=== PATIENT | female | born 1985 | race African-American/Black ===

== ENCOUNTER 2016-12-16 22:54 | Inpatient (IN) | payer MEDICARE, OTHER ==
--- NOTE | ~2016-12-16 | DS ---
Discharge Summary [address] [place]. [address] NAME: HANNY PERERA : 85 STATUS : DIS IN PAT#: [id number] AGE: 31 ADM/REG DATE : 12/17/16 MR#: [id number] REPORT SERV DATE: 01/15/17 DICTATED BY: TRISTEN FITZPATRICK DATE: 01/11/17 REPORT STATUS : Draft TRANSCRIBED BY: MODAby DATE: 01/11/17 Data Collection from hospitalization DISCHARGE DIAGNOSES: 1. Acute/chronic respiratory failure secondary to hypercapnia and hypoxemia. 2. Left lung opacification secondary to mucus plugging. 3. Quadriplegia neurofibromatosis. 4. Anemia secondary to chronic disease. 5. Electrolyte imbalance. 6. Muscle spasticity. 7. Bilateral upper extremity and bilateral feet edema. 8. Bilateral pneumonia, likely healthcare-associated pneumonia. CONSULTATIONS: 1. Anshul Palomino M.D. 2. Jeffrey Miguel PA-C. 3. Maria Guadalupe Graves MD. PROCEDURES PERFORMED: 1. Venous Doppler ultrasound of the right lower extremity on 01/03/2017. 2. Venous Doppler ultrasound of the right upper extremity on 01/03/2017. MEDICATIONS: Artificial Tears one drop in both eyes every six hours as needed, Lioresal 20 mg at bedtime, Valium 7.5 mg twice a day, Lovenox 40 mg subcutaneously every 24 hours, Neurontin 400 mg every six hours, Guaifenesin LA 600 mg three times a day, Zaditor one drop in both eyes daily, Claritin 10 mg daily, Mag-Ox 400 mg daily, Ritalin 5 mg at 8 :00 a.m. and 2:00 p.m., Provigil 200 mg daily, Singulair 10 mg at bedtime, Theragran one tablet daily, Senokot one tablet daily, Proventil 3 mL via inhaler every four hours, Tylenol 650 mg every four hours as needed, Lioresal 10 mg at 8:00 a.m. and 3:00 p.m. as needed, Ativan 1-4 mg IV every two hours as needed, Bengay one application topically as needed, morphine 1-4 mg IV every two hours as needed, Zofran 4 mg IV every six hours as needed, and Proventil 3 mL via inhaler every two hours as needed. CONDITION AT DISCHARGE: Stable. DISPOSITION: The patient was discharged to [facility] on a regular diet with activities as instructed. HOSPITAL COURSE: This is a 31-year-old man who has a history of chronic respiratory failure, quadriplegia secondary to a history of neurofibromatosis. The patient was found to be more lethargic with low O2 saturation and was sent to the [facility] Emergency Room for evaluation. On BiPAP, the patient was alert and would attempt to converse. However, the patient's mother was at the bedside and was able to give the patient history and clarified some recent change of medical condition. He was admitted to the hospital at this time for further evaluation and treatment. Upon admission, white blood cell count was 2.8. He was felt to have acute on chronic respiratory failure secondary to hypercapnia and hypoxemia. He has bilateral pneumonia, Discharge Summary [address] [place]. [address] NAME: HANNY PERERA : 85 STATUS : DIS IN PAT#: [id number] AGE: 31 ADM/REG DATE : 12/17/16 MR#: [id number] REPORT SERV DATE: 01/15/17 DICTATED BY: TRISTEN FITZPATRICK DATE: 01/11/17 REPORT STATUS : Draft TRANSCRIBED BY: HAFSA DATE: 01/11/17 which was likely healthcare-associated pneumonia. The patient was going to remain on BiPAP, which he does tolerate. Bronchodilator protocol was continued. We encouraged him to use incentive spirometry when off BiPAP. He was currently on a pneumonia regimen with vancomycin and cefepime. He did receive a dose of Zosyn in the emergency room. His admission platelet count was 99. We would hold off on any chemotherapeutic DVT prophylaxis. LEONOR hose were placed. His home regimen of Valium and baclofen were continued as well as hydrocodone for pain management. The patient was seen by Jeffrey Miguel. The patient is not currently established in an outpatient pulmonary clinic. He does not usually require supplemental oxygen. He is on no nebulized medications. He did smoke in the remote past, however, only about a half pack a day for a few years. He denies any symptomatology related to obstructive sleep apnea. He is a functional quadriplegic. Arterial blood gas had revealed PaCO2 of 79 and pH of 7.31. He had a good oxygenation status at this time wearing BiPAP with FiO2 of 21%. Chest x-ray revealed bibasilar infiltrates. It was felt that the acute on chronic hypercapnic respiratory failure was likely secondary to both his neuromuscular disease as well as some of his medications. He would be continued on BiPAP with breaks. We would check arterial blood gas the following morning. The patient was going to have his home trilogy unit brought in, this may be adjusted moving forward. Procalcitonin would be rechecked as well as a chest x-ray. The following day, he was more dyspneic and congested during the night. He did wear BiPAP without issues. ABG that morning showed correction of hypercapnia. He was going to continue on BiPAP. He has had a fever during the night. The patient did have increased O2 demand. A PICC line was inserted. On 12/19/2016, he was resting on BiPAP. Chest x-ray showed increased bibasilar infiltrates. His respiratory status was fragile secondary to neuromuscular weakness. He did pass ST evaluation. We wanted to advance his diet and stop the IV fluids, and it was felt that he would benefit from the trach. Speech/Language Pathology performed a bedside swallow study. There were no overt signs or symptoms of aspiration, but the patient was unable to cough. The next day, he was more alert and interactive. He was tolerating BiPAP and cough assist. It was felt that he would ultimately benefit from a trach. The patient wanted more time to think this over. On 12/21/2016, the patient developed worsening hypoxemia and hypercapnia. The patient was adamant regarding no trach. His mother was in agreement and would like to proceed with hospice. He was seen by Dr. Maria Guadalupe Graves regarding the worsening acute hypoxemic and hypercapnic respiratory failure superimposed on chronic hypoxemic and hypercapnic respiratory failure. Since the patient had been incapacitated, she reports that he had been quite adamant about not undergoing placement of a tracheostomy for several years and was fully aware of the risk of and poor quality of life associated with not proceeding with trach. The patient's mother verbalized that she understood that he was approaching the end of his life. The concept of hospice care and adjustments were discussed. The patient's mother was amenable to having hospice visit with the patient later in the day to discuss various levels of care as well as weighs that hospice may be helpful to his family during this difficult time. A DNR form was completed. A referral was made to [facility]. A hospice rn met with the patient's mother at her request. Hospice services and philosophies were discussed. The following day, the patient's mother said the patient did not want hospice care at this time. Education was provided regarding their services. His level of consciousness had increased. He had a mild headache, but no nausea, vomiting, or diarrhea. His shortness of breath had decreased. He continued to intermittently refuse BiPAP, particularly at night. We recommended that he use BiPAP at night. We would titrate O2 as needed. Discharge Summary [address] [place]. [address] NAME: HANNY PERERA : 85 STATUS : DIS IN [facility]#: [id number] AGE: 31 ADM/REG DATE : 12/17/16 MR#: [id number] REPORT SERV DATE: 01/15/17 DICTATED BY: TRISTEN FITZPATRICK DATE: 01/11/17 REPORT STATUS : Draft TRANSCRIBED BY: HAFSA DATE: 01/11/17 On 12/23/2016, the patient mainly complained of right eye tearing, probably secondary to the mass putting pressure on the tear duct. He had minimal pain at this time. Antibiotics were continued. Chest x-ray revealed a new left lung nodule. Tylenol was being given for his headache. His respiratory status continued to decline. He began to require continuous BiPAP with FiO2 100%. On 12/25/2016, his chest x-ray revealed consolidation of the left lung. The patient was felt to have a mucus plug in the left lung. The patient was seen by Dr. Anshul Palomino. His shortness of breath had worsened and he was unable to tolerate being off the bypass. The patient was sitting up in bed, visibly gasping for air. Emotional support was provided. We would continue to provide supportive care. Morphine was being given. He was unable to tolerate any period off BiPAP. Chest x-ray on 12/28/2016 showed improved aeration in the left upper lobe. There was residual opacity in the left lung. He was afebrile, off antibiotics at this time. His prognosis remained poor. On 12/31/2016, the patient was anxious. He had increased work of breathing. His work of breathing improved with morphine. He has an opacified left hemithorax, which was too tenuous for bronchoscopy. We continued to have end of life discussions with the mother and the patient. Morphine and anxiolytics were continued. It was felt that mucus plug would continue to be biggest bairon. His medications had been maximally managed and there was not much more which could be added. The patient was only able to tolerate being off BiPAP about one hour. On 01/02/2017, he had less congestion. He did wear the BiPAP during the night. Oxygen requirements had slightly improved. He did tolerate being on Vapotherm for about three hours on 01/02/2017. He was placed back on BiPAP and was comfortable. On 01/03/2017, discharge plans were being discussed. Later in the day, he had worsening hypoxemia and rhonchi. He was on continuous BiPAP. Venous Doppler ultrasound of the right lower extremity and right upper extremity were performed. There was no DVT in the right lower extremity. There were multiple lymph nodes identified in the groin on the right side. There was no evidence of DVT in the right upper extremity. On 01/04/2017, he was on maximal BiPAP settings. He continued to refuse the trach. He continued to have mucus plugging. Discharge instructions were given. Due to his stable condition, he was discharged to [facility] with the above-stated instructions. Information collected by: Ignacia Ambriz I submit the above information as my discharge summary. TG/MODL Tristen Fitzpatrick M.D. / [id number] CC: Jessica Carrillo M.D. [facility]
--- NOTE | ~2016-12-16 | HP ---
History And Physical [address] [place]. [address] NAME: HANNY PERERA : 85 STATUS : ADM IN [facility]#: [id number] AGE: 31 ADM/REG DATE : 12/17/16 MR#: [id number] REPORT SERV DATE: 12/17/16 DICTATED BY: TRISTEN FITZPATRICK DATE: 12/17/16 REPORT STATUS : Draft TRANSCRIBED BY: MODL DATE: 12/17/16 DATE OF ADMISSION: 12/17/2016 CHIEF COMPLAINT: Low oxygen and drowsy. HISTORY OF PRESENT ILLNESS: The patient is a 31-year-old male with known history of chronic respiratory failure, quadriplegia secondary to history of neurofibromatosis. The patient was found to be more lethargic and with low O2 saturation; therefore, was sent to [facility] Emergency Room for further evaluation. The patient on BiPAP is alert and attempts to converse; however, the patient's mother at bedside able to give the patient's history and clarified some recent change of medical condition. ALLERGIES: ALLERGIC TO IVP DYE. CODE STATUS: Full code. HOME MEDICATIONS: Albuterol inhalation every 6 hours, Bion Tears 1 drop every 6 hours, baclofen 20 mg p.o. at bedtime, Valium 7.5 mg p.o. twice a day, Mildred 180 mg p.o. daily, Neurontin 400 mg p.o. every 6 hours, hydrocodone 7.5/325 mg p.o. every 12 hours p.r.n., magnesium oxide 250 mg q.48 h., Provigil 200 mg p.o. daily, Ritalin 5 mg p.o. twice a day, Singulair 10 mg p.o. at bedtime, multivitamin without minerals 1 p.o. daily, olopatadine hydrochloride solution 1 drop in each eye every morning, and Senokot 1 tablet every morning. PAST MEDICAL HISTORY: 1. Chronic respiratory failure, had used Trilogy in the past 3 years with recent change to regular BiPAP per the patient's mother, but unsure why. 2. Asthmatic bronchitis. 3. Quadriplegia. 4. Gastroesophageal reflux disease. 5. Muscle spasticity. 6. Asthma. 7. History of neurofibromatosis. 8. History of pneumonia. 9. History of daytime drowsiness likely secondary to medication side effects. 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 SOCIAL HISTORY: The patient is a resident of [facility] for approximately 1 year and 6 months. He is single and he denies any history of alcohol, tobacco or any illicit drug use. REVIEW OF SYSTEMS: The patient denies any problem with his eyesight. He denies any history of swallowing issue. The patient has had some issue with wax buildup in his left ear. The patient had History And Physical [address] [place]. [address] NAME: HANNY PERERA : 85 STATUS : ADM IN [facility]#: [id number] AGE: 31 ADM/REG DATE : 12/17/16 MR#: [id number] REPORT SERV DATE: 12/17/16 DICTATED BY: TRISTEN FITZPATRICK DATE: 12/17/16 REPORT STATUS : Draft TRANSCRIBED BY: HAFSA DATE: 12/17/16 reported some runny nose, sneezing and watery eyes in the past secondary to allergy. The patient denies any shortness of breath. Denies any chest pain. The patient's mother reports the patient has been on Trilogy BiPAP for approximately 3 years and had been changed recently to regular BiPAP, but unsure why and how long ago while at [facility]. The patient's mother feels that since he has been changed to regular BiPAP, he has had some issue with staying awake, and therefore, he was just recently started on Provigil, which did not help. The patient denies complaint of any chest pain. Denies any complaint of abdominal pain. The patient's mother reports, the patient has had a bowel movement last on Saturday. The patient with history of quadriplegia and contractures of his extremities. The patient uses a brace for his bilateral hands and bilateral lower extremity, but was not brought in from [facility]. The patient's mother also reports the patient with dry skin and wants him to have daily moisturizer and has had some pressure ulcer that has healed on his right foot. While at [facility], the patient uses his motorized wheelchair to get around. PHYSICAL EXAMINATION: VITAL SIGNS: The patient's pulse is 66, respiratory rate 12, BP of 117/58, sat O2 of 97% currently on BiPAP with FiO2 of 21%, weight of 66.73 kg, BMI of 17.9. GENERAL: The patient is an male, currently on continuous BiPAP, but awake and in no acute distress noted. The patient is conversant. EYES: PERRL. NECK: No pain on palpation. Moves neck without pain. CHEST: No deformity noted. LUNGS: Clear to auscultation bilaterally, symmetrical expansion. CV: Regular rate and rhythm. Normal S1, S2. No murmurs noted. ABDOMEN: Soft, nontender. Positive bowel sounds x4 quadrants. EXTREMITIES: Noted slight edema on the left ankle, positive contracture of bilateral lower ankles with bilateral footdrop, and noted old healed scar on the right plantar area with hyperpigmentation along the scarred area. SKIN: Generalized dry skin worsened lower extremity and noted left antecubital peripheral IV without redness or edema. Chest x-ray on 12/17/2016, revealed perihilar and bibasilar infiltrates, blurred thickening in the apices. LABORATORY STUDY: On 12/17, revealed a sodium of 142, potassium 4.0, chloride of 103, CO2 of 37, BUN 14, creatinine of 0.25, glucose of 60, GFR of 223. WBC of 2.8, hemoglobin 12.8, hematocrit 42.0, platelet of 99. AST 34, bilirubin of 0.4, total protein of 6.6, ALT of 54, albumin 3.1, ALP of 93, lactate of 0.4, procalcitonin of less than 0.05. ABG revealed 7.31 pH, pCO2 of 79, pO2 of 141, HCO2 of 39.0 and iO2 of 21.0. ASSESSMENT: 1. Gdvgg-uv-hddnwsm respiratory failure secondary to hypercapnia and hypoxemia. 2. Bilateral pneumonia, likely healthcare associated pneumonia. 3. Neutropenia. History And Physical [address] [address] NAME: HANNY PERERA : 85 STATUS : ADM IN [facility]#: [id number] AGE: 31 ADM/REG DATE : 12/17/16 MR#: [id number] REPORT SERV DATE: 12/17/16 DICTATED BY: TRISTEN FITZPATRICK DATE: 12/17/16 REPORT STATUS : Draft TRANSCRIBED BY: MODL DATE: 12/17/16 4. Thrombocytopenia. 5. Quadriplegia secondary to history of neurofibromatosis. 6. History of muscle spasticity, secondary to neurofibromatosis. 7. History of asthma. 8. History of gastroesophageal reflux disease. PLAN: Appreciate consult with equip tech. The patient was seen today by equip tech, reviewed ABG result this morning. The patient currently remains on BiPAP, which the patient tolerates. The patient appears to have been on Trilogy. We will need further evaluation on whether this patient continues to use the Trilogy at [facility] as it was recently changed to regular BiPAP. We will need to know rationale for the change. Follow up chest x-ray in a.m. as well as ABG. Continue bronchodilator protocol q.4 h. and encourage use of bedside incentive spirometry when off BiPAP. Continue to monitor sat O2 and respiratory rate. The patient is at risk for further hypoxia. The patient currently on pneumonia regimen with vancomycin and cefepime. The patient did receive a dose of Zosyn while at the ER. We will have Pharmacy monitor vancomycin level and ensure the patient's vancomycin level is therapeutic. The patient is at risk for sepsis, also at risk for acute kidney injury with vancomycin therapy. The patient's admission WBC is 2.8. We will ensure standard precaution. Repeat labs in a.m. The patient is at risk for sepsis. The patient's admission platelet is 99, so we will hold off on any chemotherapeutic DVT prophylaxis. We will place the patient on LEONOR hose, for now followup labs. The patient is at risk for bleeding. The patient with history of muscle spasticity secondary to his history of neurofibromatosis and quadriplegia. We will continue current home regimen of Valium and baclofen as well as p.r.n. hydrocodone for pain management. We will continue frequent positional changes. The patient is at risk for skin breakdown. We will review the patient's home medications. We will continue home regimen except for albuterol since the patient is now on bronchodilator protocol. Monitor bowel movement, continue Senokot. The patient is at risk for bowel obstruction. Address the patient's code status with mother and continued to desire full code. POLST form from [facility] is in chart. DICTATED BY: Kassie Spaulding NP CLP/HAFSA Tristen History And Physical [address] [place] [address] NAME: HANNY PERERA : 85 STATUS : ADM IN PAT#: [id number] AGE: 31 ADM/REG DATE : 12/17/16 MR#: [id number] REPORT SERV DATE: 12/17/16 DICTATED BY: TRISTEN FITZPATRICK DATE: 12/17/16 REPORT STATUS : Draft TRANSCRIBED BY: MODL DATE: 12/17/16 Jessica Fitzpatrick / [id number] CC: Lino Naik M.D.
--- NOTE | ~2016-12-16 | CN ---
Consultation Report [facility] [address] [place]. [address] NAME: HANNY ROWE : 85 STATUS : ADM IN PAT#: [id number] AGE: 31 ADM/REG DATE : 12/17/16 MR#: [id number] REPORT SERV DATE: 12/17/16 DICTATED BY: JEFFREY WATKINS DATE: 12/17/16 REPORT STATUS : Draft TRANSCRIBED BY: MODL DATE: 12/17/16 CONSULT NOTE DATE OF CONSULTATION: 12/17/2016 CHIEF COMPLAINT: Somnolence in a patient with hypercapnia. HISTORY OF PRESENT ILLNESS: Mr. Hanny Rowe is a very pleasant 31-year-old male with a past medical history significant for neurofibromatosis, who presents to [facility] from a long-term care facility for issues related to hypersomnolence. It should be noted that Mr. Rowe has not been hospitalized recently. Mr. Rowe is not currently established in an outpatient Pulmonary Clinic. He is not usually require supplemental oxygen. He is on no nebulized medications. He did smoke in the remote past, however, only about half a pack a day for a few years. He largely denies symptomatology related to obstructive sleep apnea. He is unable to quantify his exercise tolerance as he is a functional quadriplegic. Mr. Rowe underwent a resection of a neck tumor in 2005. By report, it was diagnostic for neurofibromatosis. He began to experience worsening lower extremity weakness, which has become progressively worse, it is now effecting his upper extremities. Approximately a year ago, he began seeing at [facility]. While there, he has maintained on Trilogy system with a rate of 16 and an approximated tidal volume of 600. More recently, he has had episodes where he has become somnolent and even difficult to arouse at times. As there was some concern about his overall pulmonary status he was transferred to [facility] Emergency Room for further assessment. Upon arrival, the patient had a systolic blood pressure of 102. He was afebrile with good oxygen saturations. Initial blood work revealed white blood cell count of 2800. Lactate was 0.4. Chest x-ray was obtained, which revealed patchy infiltrates in the bilateral bases. The patient was started on Zosyn and vancomycin. An arterial blood gas was obtained, which revealed a PaCO2 of 79 and a pH of 7.31. The patient was started on BiPAP therapy. For the aforementioned reasons, the patient has been referred to the Pulmonary Service for further assessment. Currently, Mr. Roew is wearing a BiPAP. He is alert and awake. He is answering questions appropriately. He has good oxygenation status on an FiO2 of 21%. He denies any aspiration events. He denies any productive cough or any wheezing. He has no shortness of breath. He denies recurrent upper respiratory infections, asthma, or previous diagnosis of COPD. The patient currently denies any murmurs, angina, or palpitations. He denies any orthopnea or dependent edema. Consultation Report [address] [place]. [address] NAME: HANNY ROWE : 85 STATUS : ADM IN [facility]#: [id number] AGE: 31 ADM/REG DATE : 12/17/16 MR#: [id number] REPORT SERV DATE: 12/17/16 DICTATED BY: JEFFREY WATKINS DATE: 12/17/16 REPORT STATUS : Draft TRANSCRIBED BY: HAFSA DATE: 12/17/16 In regard to constitutional symptoms, currently denies fever, chills, nausea, vomiting, chest pain, abdominal pain, or edema. PAST MEDICAL HISTORY: 1. Neurofibromatosis. 2. Chronic respiratory failure. PAST SURGICAL HISTORY: Excision of a neck tumor in 2005. FAMILY HISTORY: There is a strong family history of neurofibromatosis. SOCIAL HISTORY: The patient is not . He has no biologic children. He denies any past exposures to dust, silica, or asbestos. TOBACCO/ALCOHOL: As previously mentioned, the patient is a remote smoker. MEDICATIONS: Baclofen 20 mg, diazepam 5 mg, Mildred 180 mg, gabapentin 400 mg, hydrocodone 7.5/325, methylphenidate 5 mg, modafinil mg, montelukast 10 mg, . ALLERGIES: THE PATIENT HAS ALLERGY TO HYDROCODONE. REVIEW OF SYSTEMS: Complete review of systems was performed with pertinent positives and negatives contained within the body of the HPI. PHYSICAL EXAMINATION: VITAL SIGNS: Blood pressure is 117/58, heart rate 74, T-max 98.6, respiratory rate is 12, SpO2 is 97% on BiPAP settings 18/5 with an FiO2 of 21%. GENERAL: Mr. Hanny Rowe is a very pleasant 31-year-old male, who is not currently exhibiting any signs of acute distress. SKIN: Diffuse macule and papules on the anterior chest. HEENT: Head: Skull is normocephalic, atraumatic. Facies are symmetric. Eyes: Sclerae anicteric. Conjunctivae pink without exudates. Ears: Auricles and tragus without pain to palpation. Nose: Bilateral nasal patency. Throat: Dentition noted. Lips, oral mucosa, tongue, palate, and pharynx pink and moist without lesions. NECK: Neck is supple. Trachea midline. THORAX/LUNGS: Thorax is symmetric with equal chest rise. Breath sounds are audible through entire field. No rales, wheezes, or rhonchi. CARDIOVASCULAR: Regular rate and rhythm. No murmurs, rubs, or gallops. ABDOMEN: Soft. Nondistended, nontender. PERIPHERAL VASCULAR: No edema. No varicosities or stasis changes. MUSCULOSKELETAL: No evidence of erythema, deformity, or crepitus. NEUROLOGIC: Strength is 0/5 throughout. PSYCHIATRIC: The patient demonstrates good judgment and insight. Consultation Report [address] [address] NAME: HANNY ROWE : 85 STATUS : ADM IN [facility]#: [id number] AGE: 31 ADM/REG DATE : 12/17/16 MR#: [id number] REPORT SERV DATE: 12/17/16 DICTATED BY: JEFFREY WATKINS DATE: 12/17/16 REPORT STATUS : Draft TRANSCRIBED BY: MODL DATE: 12/17/16 ACCESSORY DATA: Reveals a procalcitonin 0.05. White blood cell count is 2800. Arterial blood gas reveals pH 7.31, PaCO2 of 79, PaO2 of 141, and a bicarb of 39.0. Chest x-ray reveals bibasilar infiltrates. IMPRESSION: 1. Acute on chronic hypercapnic respiratory failure. 2. Neurofibromatosis. 3. Functional quadriplegia. 4. Possible pneumonia. 5. Neutropenia. PLAN: 1. At this time, his acute on chronic hypercapnic respiratory failure is likely secondary to both his neuromuscular disease as well as some of his medications. We will continue him on BiPAP with breaks today. We will check an arterial blood gas in the morning. We will encourage the patient to bring in his home Trilogy unit. We may need to adjust this moving forward. 2. In regard to the patient's possible pneumonia, we will recheck a procalcitonin as well as a chest x-ray. Hopefully, we can deescalate antibiotics soon. The aforementioned impression and plan has been discussed with Dr. Stoner, who will follow further recommendations. We thank you for this consult and look forward to participating in the care of Hanny Rowe. GBS/MODL Jeffrey Watkins PA-C / [id number] CC: Lino Naik M.D.
--- NOTE | ~2016-12-16 | CN ---
Consultation Report [facility] [address] [place]. [address] NAME: HANNY ROWE : 85 STATUS : ADM IN PAT#: [id number] AGE: 31 ADM/REG DATE : 12/17/16 MR#: [id number] REPORT SERV DATE: 12/21/16 DICTATED BY: NAVNEET WEBB DATE: 12/21/16 REPORT STATUS : Draft TRANSCRIBED BY: MODL DATE: 12/21/16 PULMONARY CRITICAL CARE DOCUMENTATION DATE OF CONSULTATION: 12/21/2016 REASON FOR CONSULTATION: Worsening acute hypoxemic and hypercapnic respiratory failure, superimposed onto chronic hypoxemic and hypercapnic respiratory failure. HISTORY OF PRESENT ILLNESS: I was asked to evaluate Mr. Rowe in the IMCU by Dr. Angelica Stoner, who is seeing him for the Pulmonology Consult Service after his transfer from the unit yesterday, he is well known to me from his recent CCU stay. His mother was at the bedside, who functions as his medical decision maker. Over the course of the last 12 hours, Hanny has been developing worsening hypoxemia with a sat that has been consistently in the mid 80s despite aggressive BiPAP settings and frequent cough assist device was used. After examining at the bedside, he was found to have bilateral coarse breath sounds with diminished breath sounds at the bases and accessary muscle use (sternocleidomastoid) as he was attempting to ventilate himself. We were able to remove adjustments BiPAP mask to discuss his goals for future care. He reported that he wanted to go home. Long discussion was conducted with Dr. Stoner and myself, and Hanny's mother, who makes his medical decisions. When he is incapacitated, she reports that he has been quite adamant about not undergoing placement of tracheostomy for several years and is fully aware of the risk of associated with not proceeding with trach. We discussed the concept of mechanical ventilation/intubation as a bridge to destination therapy and as he has a permanent neuromuscular respiratory weakness, unfortunately placing him on mechanical ventilation without plan for tracheostomy insertion would be a bridge to nowhere. His mother was in agreement and verbalized that she understands that he is approaching the end of his life. She verbalized that she felt that he has been giving up over the past couple of weeks, and is very clear with regard to his wishes as he watched his father from complications of neuromuscular respiratory weakness, and pneumonia as well, and is at peace with the fact that he will likely from the same condition. We introduced a concept of hospice care and adjustments. The mother was amenable to having hospice visit with him later today to discuss the various levels of care available to him as well as weighs that hospice may be helpful to his family during this difficult time. We did complete a DNR form with the understanding that he will not be intubated and will certainly not benefit from ACLS. We will notify the primary team and proceed with transition toward hospice care. Please re-consult if we may be of additional assistance, Critical Care Medicine will be signing off. TANNER/HAFSA Navneet Consultation Report [address] [place]. [address] NAME: TREVERHANNY : 85 STATUS : ADM IN PAT#: [id number] AGE: 31 ADM/REG DATE : 12/17/16 MR#: [id number] REPORT SERV DATE: 12/21/16 DICTATED BY: NAVNEET WEBB DATE: 12/21/16 REPORT STATUS : Draft TRANSCRIBED BY: HAFSA DATE: 12/21/16 MD Star / [id number] CC: Lino Naik M.D.
[2016-12-16 23:10] LABS: BE (BASE EXCESS) 9.3 MEQ/L (0 +/- 2.5); CARBOXYHEMOGLOBIN 1.4 % (0-3); HEMOBLOGIN CONTENT 14.3 G/DL (14-18); INSTRUMENT SERIAL # 8087; METHEMOGLOBIN 0.5 % (0-3); O2 CONTENT 19.7 VOL% (18-24); PCO2 (CO2 TENSION) 79 MMHG (35-45); PO2 (O2 TENSION) 141 MMHG (79-93); SAMPLE Arterial; pH 7.31 (7.37-7.43)
[2016-12-16 23:30] LABS: BASOPHILS 0.4 %; BASOPHILS ABSOLUTE 0.01 10/3/uL (0.0-0.16); EOSINOPHILS 1.4 %; EOSINOPHILS ABSOLUTE 0.04 10/3/uL (0.0-0.53); ER CBC TAT 0 Hrs 03 Mins; HEMOGLOBIN 13.8 g/dL (13.6-17.8); IMMATURE GRANULOCYTES 0.4 %; IMMATURE GRANULOCYTES ABSOLUTE 0.01 10/3/uL (0.0-0.11); LYMPHOCYTES 44.7 %; LYMPHOCYTES ABSOLUTE 1.27 10/3/uL (0.67-4.30); MEAN CORPUS HGB CONC 32.9 g/dL (32.0-36.0); MEAN CORPUSCULAR HEMOGLOB 30.2 pg (26.0-34.0); MEAN CORPUSCULAR VOLUME 91.9 fL (80-100); MEAN PLATELET VOLUME 12.4 fL (9.2-13.0); MONOCYTES 6.7 %; MONOCYTES ABSOLUTE 0.19 10/3/uL (0.21-1.20); NEUTROPHILS 46.4 %; NEUTROPHILS ABSOLUTE 1.32 10/3/uL (2.02-8.40); PLATELET COUNT 99 10/3/uL (150-400); RBC DISTRIBUTION WIDTH 15.6 % (12.0-16.0); RED CELL COUNT 4.57 10/6/uL (4.7-6.1); WHITE BLOOD CELLS 2.8 10/3/uL (4.5-10.5)
[2016-12-16 23:32] LABS: MANUAL DIFF NO %
[2016-12-17 01:30] LABS: A/G RATIO 0.9 (0.7-1.9); ALBUMIN 3.1 G/DL (3.5-5.0); ALKALINE PHOSPHATASE 93 U/L (45-117); BUN (BLOOD UREA NITROGEN) 14 MG/DL (6-23); CALCIUM, SERUM 9.6 MG/DL (8.5-10.4); CHLORIDE, SERUM 103 MMOL/L (96-112); CO2 (CARBON DIOXIDE) 37 MMOL/L (24-34); CREATININE 0.25 MG/DL (0.70-1.30); GFR AFRICAN AMERICAN 223 ML/MIN (>=60); GFR NON AFRICAN AMERICAN 192 ML/MIN (>=60); GLOBULIN 3.5 G/DL (2.5-4.1); GLUCOSE, SERUM 60 MG/DL (60-99); SGOT(AST) 34 U/L (5-40); SGPT(ALT) 54 U/L (5-65); SODIUM, SERUM 142 MMOL/L (135-148); TOTAL BILIRUBIN 0.4 MG/DL (0-1.2); TOTAL PROTEIN 6.6 G/DL (6.0-8.5)
[2016-12-17 02:07] LABS: PROCALCITONIN <0.05 ng/mL (<0.5)
[2016-12-17] MEDS ORDERED: NEUR400 PO (04:08)
[2016-12-17] MEDS ORDERED: ALBUTEROL0.083 % INH (04:08)
[2016-12-17] MEDS ORDERED: MVI PO (04:09)
[2016-12-17] MEDS ORDERED: SINGULAIR1 PO (04:10)
[2016-12-17] MEDS ORDERED: BACLOFEN20 MG PO (04:10)
[2016-12-17] MEDS ORDERED: ALLEGRA180 PO (04:10)
[2016-12-17] MEDS ORDERED: MAG OXIDE250 MG PO (04:11)
[2016-12-17] MEDS ORDERED: PATADAY OPH (04:13)
[2016-12-17] MEDS ORDERED: BION TEARS OPH (04:14)
[2016-12-17] MEDS ORDERED: V5 PO (04:16)
[2016-12-17] MEDS ORDERED: SENTAB PO (04:17)
[2016-12-17] MEDS ORDERED: PROVIGIL2 PO (04:18)
[2016-12-17] MEDS ORDERED: RITALIN5 PO (04:18)
[2016-12-17] MEDS ORDERED: NORCO1 TA2 PO (04:20)
[2016-12-18 04:47] LABS: ALLENS TEST Pos; BE (BASE EXCESS) 6.6 MEQ/L (0 +/- 2.5); BIPAP 18/5 cm.H2O; CARBOXYHEMOGLOBIN 1.2 % (0-3); HCO3 (ACTUAL BICARBONATE) 30.9 MEQ/L (23-27); HEMOBLOGIN CONTENT 12.9 G/DL (14-18); INSTRUMENT SERIAL # 8083; METHEMOGLOBIN 0.6 % (0-3); O2 CONTENT 17.2 VOL% (18-24); OPERATOR ID 18978; PCO2 (CO2 TENSION) 43 MMHG (35-45); PO2 (O2 TENSION) 80 MMHG (79-93); SAMPLE Arterial; pH 7.47 (7.37-7.43)
[2016-12-18 04:59] LABS: BASOPHILS 0.2 %; BASOPHILS ABSOLUTE 0.01 10/3/uL (0.0-0.16); EOSINOPHILS 0.2 %; EOSINOPHILS ABSOLUTE 0.01 10/3/uL (0.0-0.53); HEMOGLOBIN 12.5 g/dL (13.6-17.8); IMMATURE GRANULOCYTES 0.2 %; IMMATURE GRANULOCYTES ABSOLUTE 0.01 10/3/uL (0.0-0.11); LYMPHOCYTES 40.6 %; LYMPHOCYTES ABSOLUTE 1.67 10/3/uL (0.67-4.30); MEAN CORPUS HGB CONC 33.2 g/dL (32.0-36.0); MEAN CORPUSCULAR VOLUME 90.2 fL (80-100); MEAN PLATELET VOLUME 11.1 fL (9.2-13.0); MONOCYTES 10.9 %; MONOCYTES ABSOLUTE 0.45 10/3/uL (0.21-1.20); NEUTROPHILS 47.9 %; NEUTROPHILS ABSOLUTE 1.96 10/3/uL (2.02-8.40); PLATELET COUNT 116 10/3/uL (150-400); RBC DISTRIBUTION WIDTH 15.3 % (12.0-16.0); RED CELL COUNT 4.17 10/6/uL (4.7-6.1)
[2016-12-18 05:00] LABS: HEMATOCRIT 37.6 % (40.0-51.0); MANUAL DIFF NO %; WHITE BLOOD CELLS 4.1 10/3/uL (4.5-10.5)
[2016-12-18 05:08] LABS: BUN (BLOOD UREA NITROGEN) 16 MG/DL (6-23); CHLORIDE, SERUM 105 MMOL/L (96-112); CREATININE 0.45 MG/DL (0.70-1.30); GFR AFRICAN AMERICAN 175 ML/MIN (>=60); GFR NON AFRICAN AMERICAN 151 ML/MIN (>=60); PHOSPHORUS, SERUM 2.7 MG/DL (2.5-4.5); POTASSIUM, SERUM 4.1 MMOL/L (3.5-5.3); SODIUM, SERUM 141 MMOL/L (135-148)
[2016-12-18 05:09] LABS: CO2 (CARBON DIOXIDE) 32 MMOL/L (24-34); GLUCOSE, SERUM 93 MG/DL (60-99)
[2016-12-18 05:53] LABS: PROCALCITONIN <0.05 ng/mL (<0.5)
[2016-12-18 12:21] LABS: INSTRUMENT SERIAL # 8083; pH 7.25 (7.37-7.43)
[2016-12-18 12:22] LABS: BE (BASE EXCESS) -0.5 MEQ/L (0 +/- 2.5); BIPAP 18/5 cm.H2O; CARBOXYHEMOGLOBIN 0.9 % (0-3); HCO3 (ACTUAL BICARBONATE) 28.3 MEQ/L (23-27); HEMOBLOGIN CONTENT 13.8 G/DL (14-18); METHEMOGLOBIN 0.5 % (0-3); O2 CONTENT 18.3 VOL% (18-24); PCO2 (CO2 TENSION) 66 MMHG (35-45); PO2 (O2 TENSION) 84 MMHG (79-93); SAMPLE Arterial
[2016-12-18 14:47] LABS: INSTRUMENT SERIAL # 8083; pH 7.32 (7.37-7.43)
[2016-12-18 14:48] LABS: ALLENS TEST Pos; BE (BASE EXCESS) 5.7 MEQ/L (0 +/- 2.5); CARBOXYHEMOGLOBIN 0.7 % (0-3); HCO3 (ACTUAL BICARBONATE) 33.6 MEQ/L (23-27); HEMOBLOGIN CONTENT 12.3 G/DL (14-18); METHEMOGLOBIN 0.5 % (0-3); O2 CONTENT 17.3 VOL% (18-24); PCO2 (CO2 TENSION) 66 MMHG (35-45); PO2 (O2 TENSION) 169 MMHG (79-93); SAMPLE Arterial
[2016-12-18 16:46] LABS: ULTRASENSITIVE TSH 1.87 MCIU/ML (0.358-3.740); VANCOMYCIN TROUGH 25.8 MCG/ML (10.0-20.0)
[2016-12-19 04:34] LABS: BASOPHILS 0.1 %; BASOPHILS ABSOLUTE 0.01 10/3/uL (0.0-0.16); EOSINOPHILS 0.1 %; EOSINOPHILS ABSOLUTE 0.01 10/3/uL (0.0-0.53); HEMATOCRIT 37.3 % (40.0-51.0); HEMOGLOBIN 12.2 g/dL (13.6-17.8); IMMATURE GRANULOCYTES 0.2 %; IMMATURE GRANULOCYTES ABSOLUTE 0.02 10/3/uL (0.0-0.11); LYMPHOCYTES 11.1 %; LYMPHOCYTES ABSOLUTE 1.03 10/3/uL (0.67-4.30); MEAN CORPUS HGB CONC 32.7 g/dL (32.0-36.0); MEAN CORPUSCULAR HEMOGLOB 29.6 pg (26.0-34.0); MEAN CORPUSCULAR VOLUME 90.5 fL (80-100); MEAN PLATELET VOLUME 11.8 fL (9.2-13.0); MONOCYTES 4.4 %; MONOCYTES ABSOLUTE 0.41 10/3/uL (0.21-1.20); NEUTROPHILS 84.1 %; NEUTROPHILS ABSOLUTE 7.78 10/3/uL (2.02-8.40); PLATELET COUNT 116 10/3/uL (150-400); RBC DISTRIBUTION WIDTH 15.2 % (12.0-16.0); RED CELL COUNT 4.12 10/6/uL (4.7-6.1)
[2016-12-19 04:37] LABS: MANUAL DIFF NO %; WHITE BLOOD CELLS 9.3 10/3/uL (4.5-10.5)
[2016-12-19 04:49] LABS: BUN (BLOOD UREA NITROGEN) 12 MG/DL (6-23); CALCIUM, SERUM 9.5 MG/DL (8.5-10.4); CHLORIDE, SERUM 103 MMOL/L (96-112); CO2 (CARBON DIOXIDE) 31 MMOL/L (24-34); CREATININE 0.29 MG/DL (0.70-1.30); GFR AFRICAN AMERICAN 209 ML/MIN (>=60); GFR NON AFRICAN AMERICAN 181 ML/MIN (>=60); GLUCOSE, SERUM 70 MG/DL (60-99); PHOSPHORUS, SERUM 2.5 MG/DL (2.5-4.5); POTASSIUM, SERUM 3.8 MMOL/L (3.5-5.3); SODIUM, SERUM 143 MMOL/L (135-148); VANCOMYCIN TROUGH 14.3 MCG/ML (10.0-20.0)
[2016-12-20 03:58] LABS: BASOPHILS 0.2 %; BASOPHILS ABSOLUTE 0.01 10/3/uL (0.0-0.16); EOSINOPHILS 0.7 %; EOSINOPHILS ABSOLUTE 0.04 10/3/uL (0.0-0.53); HEMATOCRIT 36.2 % (40.0-51.0); HEMOGLOBIN 12.1 g/dL (13.6-17.8); IMMATURE GRANULOCYTES 0.4 %; IMMATURE GRANULOCYTES ABSOLUTE 0.02 10/3/uL (0.0-0.11); LYMPHOCYTES 33.6 %; LYMPHOCYTES ABSOLUTE 1.82 10/3/uL (0.67-4.30); MEAN CORPUS HGB CONC 33.4 g/dL (32.0-36.0); MEAN CORPUSCULAR VOLUME 89.8 fL (80-100); MEAN PLATELET VOLUME 11.5 fL (9.2-13.0); MONOCYTES 9.8 %; MONOCYTES ABSOLUTE 0.53 10/3/uL (0.21-1.20); NEUTROPHILS 55.3 %; NEUTROPHILS ABSOLUTE 2.99 10/3/uL (2.02-8.40); PLATELET COUNT 128 10/3/uL (150-400); RBC DISTRIBUTION WIDTH 14.9 % (12.0-16.0); RED CELL COUNT 4.03 10/6/uL (4.7-6.1)
[2016-12-20 03:59] LABS: MANUAL DIFF NO %; WHITE BLOOD CELLS 5.4 10/3/uL (4.5-10.5)
[2016-12-20 04:16] LABS: BUN (BLOOD UREA NITROGEN) 12 MG/DL (6-23); CHLORIDE, SERUM 103 MMOL/L (96-112); CO2 (CARBON DIOXIDE) 35 MMOL/L (24-34); CREATININE 0.32 MG/DL (0.70-1.30); GFR AFRICAN AMERICAN 201 ML/MIN (>=60); GFR NON AFRICAN AMERICAN 173 ML/MIN (>=60); POTASSIUM, SERUM 3.9 MMOL/L (3.5-5.3); SODIUM, SERUM 141 MMOL/L (135-148)
[2016-12-20 04:17] LABS: GLUCOSE, SERUM 93 MG/DL (60-99)
[2016-12-21 00:57] LABS: ALLENS TEST Pos; BE (BASE EXCESS) 7.1 MEQ/L (0 +/- 2.5); BIPAP 20/8 cm.H2O; CARBOXYHEMOGLOBIN 0.6 % (0-3); INSTRUMENT SERIAL # 8083; METHEMOGLOBIN 0.4 % (0-3); O2 CONTENT 16.2 VOL% (18-24); OPERATOR ID 30013; PCO2 (CO2 TENSION) 47 MMHG (35-45); PO2 (O2 TENSION) 83 MMHG (79-93); SAMPLE Arterial; pH 7.46 (7.37-7.43)
[2016-12-21 05:05] LABS: ALBUMIN 2.7 G/DL (3.5-5.0); BUN (BLOOD UREA NITROGEN) 11 MG/DL (6-23); CHLORIDE, SERUM 103 MMOL/L (96-112); CO2 (CARBON DIOXIDE) 36 MMOL/L (24-34); CREATININE 0.23 MG/DL (0.70-1.30); GFR AFRICAN AMERICAN 230 ML/MIN (>=60); GFR NON AFRICAN AMERICAN 199 ML/MIN (>=60); GLUCOSE, SERUM 84 MG/DL (60-99); PHOSPHORUS, SERUM 3.2 MG/DL (2.5-4.5); POTASSIUM, SERUM 3.9 MMOL/L (3.5-5.3); SODIUM, SERUM 143 MMOL/L (135-148); VANCOMYCIN TROUGH 15.3 MCG/ML (10.0-20.0)
[2016-12-21 05:07] LABS: BASOPHILS 0.2 %; BASOPHILS ABSOLUTE 0.01 10/3/uL (0.0-0.16); EOSINOPHILS 1.5 %; EOSINOPHILS ABSOLUTE 0.07 10/3/uL (0.0-0.53); HEMATOCRIT 35.2 % (40.0-51.0); HEMOGLOBIN 11.4 g/dL (13.6-17.8); IMMATURE GRANULOCYTES 0.4 %; IMMATURE GRANULOCYTES ABSOLUTE 0.02 10/3/uL (0.0-0.11); LYMPHOCYTES 34.1 %; MEAN CORPUS HGB CONC 32.4 g/dL (32.0-36.0); MEAN CORPUSCULAR HEMOGLOB 29.7 pg (26.0-34.0); MEAN CORPUSCULAR VOLUME 91.7 fL (80-100); MEAN PLATELET VOLUME 11.3 fL (9.2-13.0); MONOCYTES ABSOLUTE 0.47 10/3/uL (0.21-1.20); NEUTROPHILS 53.8 %; NEUTROPHILS ABSOLUTE 2.52 10/3/uL (2.02-8.40); PLATELET COUNT 132 10/3/uL (150-400); RBC DISTRIBUTION WIDTH 15.1 % (12.0-16.0); RED CELL COUNT 3.84 10/6/uL (4.7-6.1); WHITE BLOOD CELLS 4.7 10/3/uL (4.5-10.5)
[2016-12-21 05:08] LABS: MANUAL DIFF NO %
[2016-12-21 10:36] LABS: ALLENS TEST Pos; BE (BASE EXCESS) 7.1 MEQ/L (0 +/- 2.5); BIPAP 20/8 cm.H2O; CARBOXYHEMOGLOBIN 1.1 % (0-3); HCO3 (ACTUAL BICARBONATE) 35.5 MEQ/L (23-27); INSTRUMENT SERIAL # 8083; METHEMOGLOBIN 0.3 % (0-3); O2 CONTENT 16.7 VOL% (18-24); OPERATOR ID 14896; PCO2 (CO2 TENSION) 70 MMHG (35-45); PO2 (O2 TENSION) 71 MMHG (79-93); SAMPLE Arterial; pH 7.32 (7.37-7.43)
[2016-12-24 05:22] LABS: BASOPHILS 0.1 %; BASOPHILS ABSOLUTE 0.01 10/3/uL (0.0-0.16); EOSINOPHILS 0.5 %; EOSINOPHILS ABSOLUTE 0.05 10/3/uL (0.0-0.53); HEMATOCRIT 34.9 % (40.0-51.0); HEMOGLOBIN 11.3 g/dL (13.6-17.8); IMMATURE GRANULOCYTES 0.4 %; IMMATURE GRANULOCYTES ABSOLUTE 0.04 10/3/uL (0.0-0.11); LYMPHOCYTES 10.8 %; LYMPHOCYTES ABSOLUTE 1.06 10/3/uL (0.67-4.30); MANUAL DIFF NO %; MEAN CORPUS HGB CONC 32.4 g/dL (32.0-36.0); MEAN CORPUSCULAR HEMOGLOB 29.8 pg (26.0-34.0); MEAN CORPUSCULAR VOLUME 92.1 fL (80-100); MEAN PLATELET VOLUME 12.2 fL (9.2-13.0); MONOCYTES 9.4 %; MONOCYTES ABSOLUTE 0.92 10/3/uL (0.21-1.20); NEUTROPHILS 78.8 %; NEUTROPHILS ABSOLUTE 7.72 10/3/uL (2.02-8.40); PLATELET COUNT 172 10/3/uL (150-400); RBC DISTRIBUTION WIDTH 15.1 % (12.0-16.0); RED CELL COUNT 3.79 10/6/uL (4.7-6.1); WHITE BLOOD CELLS 9.8 10/3/uL (4.5-10.5)
[2016-12-24 05:36] LABS: BUN (BLOOD UREA NITROGEN) 12 MG/DL (6-23); CALCIUM, SERUM 9.1 MG/DL (8.5-10.4); CHLORIDE, SERUM 107 MMOL/L (96-112); CO2 (CARBON DIOXIDE) 35 MMOL/L (24-34); CREATININE 0.25 MG/DL (0.70-1.30); GFR AFRICAN AMERICAN 223 ML/MIN (>=60); GFR NON AFRICAN AMERICAN 192 ML/MIN (>=60); GLUCOSE, SERUM 80 MG/DL (60-99); SODIUM, SERUM 139 MMOL/L (135-148); VANCOMYCIN TROUGH 14.1 MCG/ML (10.0-20.0)
[2016-12-24 16:37] LABS: PROCALCITONIN 1.03 ng/mL (<0.5)
[2016-12-25 05:27] LABS: PREALBUMIN 10.1 MG/DL (17.0-43.0)
[2016-12-26 06:00] LABS: BASOPHILS 0.1 %; BASOPHILS ABSOLUTE 0.01 10/3/uL (0.0-0.16); EOSINOPHILS 0.3 %; EOSINOPHILS ABSOLUTE 0.04 10/3/uL (0.0-0.53); HEMATOCRIT 36.8 % (40.0-51.0); HEMOGLOBIN 11.8 g/dL (13.6-17.8); IMMATURE GRANULOCYTES 0.5 %; IMMATURE GRANULOCYTES ABSOLUTE 0.06 10/3/uL (0.0-0.11); LYMPHOCYTES 6.7 %; MANUAL DIFF NO %; MEAN CORPUS HGB CONC 32.1 g/dL (32.0-36.0); MEAN CORPUSCULAR VOLUME 93.6 fL (80-100); MEAN PLATELET VOLUME 10.9 fL (9.2-13.0); MONOCYTES 11.7 %; NEUTROPHILS 80.7 %; NEUTROPHILS ABSOLUTE 9.65 10/3/uL (2.02-8.40); PLATELET COUNT 297 10/3/uL (150-400); RBC DISTRIBUTION WIDTH 14.2 % (12.0-16.0); RED CELL COUNT 3.93 10/6/uL (4.7-6.1)
[2016-12-26 06:18] LABS: ALBUMIN 2.6 G/DL (3.5-5.0); BUN (BLOOD UREA NITROGEN) 10 MG/DL (6-23); CALCIUM, SERUM 9.7 MG/DL (8.5-10.4); CHLORIDE, SERUM 98 MMOL/L (96-112); CO2 (CARBON DIOXIDE) 31 MMOL/L (24-34); GFR AFRICAN AMERICAN 244 ML/MIN (>=60); GFR NON AFRICAN AMERICAN 210 ML/MIN (>=60); GLUCOSE, SERUM 75 MG/DL (60-99); PHOSPHORUS, SERUM 2.8 MG/DL (2.5-4.5); SODIUM, SERUM 138 MMOL/L (135-148)
[2016-12-28 07:00] LABS: BASOPHILS 0.1 %; BASOPHILS ABSOLUTE 0.01 10/3/uL (0.0-0.16); EOSINOPHILS 0.5 %; EOSINOPHILS ABSOLUTE 0.06 10/3/uL (0.0-0.53); HEMOGLOBIN 10.7 g/dL (13.6-17.8); IMMATURE GRANULOCYTES 0.5 %; IMMATURE GRANULOCYTES ABSOLUTE 0.06 10/3/uL (0.0-0.11); LYMPHOCYTES 8.6 %; LYMPHOCYTES ABSOLUTE 1.06 10/3/uL (0.67-4.30); MEAN CORPUS HGB CONC 32.5 g/dL (32.0-36.0); MEAN CORPUSCULAR HEMOGLOB 29.4 pg (26.0-34.0); MEAN PLATELET VOLUME 10.9 fL (9.2-13.0); MONOCYTES 11.7 %; MONOCYTES ABSOLUTE 1.44 10/3/uL (0.21-1.20); NEUTROPHILS 78.6 %; NEUTROPHILS ABSOLUTE 9.63 10/3/uL (2.02-8.40); PLATELET COUNT 330 10/3/uL (150-400); RED CELL COUNT 3.64 10/6/uL (4.7-6.1); WHITE BLOOD CELLS 12.3 10/3/uL (4.5-10.5)
[2016-12-28 07:06] LABS: HEMATOCRIT 32.9 % (40.0-51.0); MANUAL DIFF NO %; MEAN CORPUSCULAR VOLUME 90.4 fL (80-100)
[2016-12-28 07:15] LABS: BUN (BLOOD UREA NITROGEN) 12 MG/DL (6-23); CALCIUM, SERUM 8.8 MG/DL (8.5-10.4); CHLORIDE, SERUM 100 MMOL/L (96-112); CO2 (CARBON DIOXIDE) 35 MMOL/L (24-34); CREATININE 0.17 MG/DL (0.70-1.30); GFR AFRICAN AMERICAN 261 ML/MIN (>=60); GFR NON AFRICAN AMERICAN 225 ML/MIN (>=60); GLUCOSE, SERUM 88 MG/DL (60-99); POTASSIUM, SERUM 4.4 MMOL/L (3.5-5.3); SODIUM, SERUM 139 MMOL/L (135-148)
[2016-12-30 06:37] LABS: ALBUMIN 2.2 G/DL (3.5-5.0); CALCIUM, SERUM 8.7 MG/DL (8.5-10.4); CHLORIDE, SERUM 101 MMOL/L (96-112); CO2 (CARBON DIOXIDE) 38 MMOL/L (24-34); GLUCOSE, SERUM 104 MG/DL (60-99); PHOSPHORUS, SERUM 3.2 MG/DL (2.5-4.5); POTASSIUM, SERUM 4.5 MMOL/L (3.5-5.3); SODIUM, SERUM 143 MMOL/L (135-148)
[2016-12-30 06:38] LABS: BUN (BLOOD UREA NITROGEN) 7 MG/DL (6-23); CREATININE < 0.15 MG/DL (0.70-1.30); GFR AFRICAN AMERICAN 275 ML/MIN (>=60); GFR NON AFRICAN AMERICAN 237 ML/MIN (>=60)
[2016-12-30 06:41] LABS: BASOPHILS 0.2 %; BASOPHILS ABSOLUTE 0.01 10/3/uL (0.0-0.16); EOSINOPHILS ABSOLUTE 0.09 10/3/uL (0.0-0.53); HEMOGLOBIN 10.2 g/dL (13.6-17.8); IMMATURE GRANULOCYTES 1.3 %; IMMATURE GRANULOCYTES ABSOLUTE 0.06 10/3/uL (0.0-0.11); LYMPHOCYTES 33.1 %; LYMPHOCYTES ABSOLUTE 1.51 10/3/uL (0.67-4.30); MEAN CORPUS HGB CONC 31.9 g/dL (32.0-36.0); MEAN CORPUSCULAR HEMOGLOB 29.3 pg (26.0-34.0); MEAN PLATELET VOLUME 10.7 fL (9.2-13.0); MONOCYTES 11.2 %; MONOCYTES ABSOLUTE 0.51 10/3/uL (0.21-1.20); NEUTROPHILS 52.2 %; NEUTROPHILS ABSOLUTE 2.38 10/3/uL (2.02-8.40); PLATELET COUNT 338 10/3/uL (150-400); RBC DISTRIBUTION WIDTH 14.4 % (12.0-16.0); RED CELL COUNT 3.48 10/6/uL (4.7-6.1)
[2016-12-30 06:42] LABS: MANUAL DIFF NO %; WHITE BLOOD CELLS 4.6 10/3/uL (4.5-10.5)
[2017-01-02 06:51] LABS: BASOPHILS 0.4 %; BASOPHILS ABSOLUTE 0.02 10/3/uL (0.0-0.16); EOSINOPHILS 1.5 %; EOSINOPHILS ABSOLUTE 0.08 10/3/uL (0.0-0.53); HEMATOCRIT 33.9 % (40.0-51.0); HEMOGLOBIN 10.6 g/dL (13.6-17.8); IMMATURE GRANULOCYTES ABSOLUTE 0.05 10/3/uL (0.0-0.11); LYMPHOCYTES 20.3 %; LYMPHOCYTES ABSOLUTE 1.06 10/3/uL (0.67-4.30); MEAN CORPUS HGB CONC 31.3 g/dL (32.0-36.0); MEAN CORPUSCULAR HEMOGLOB 29.5 pg (26.0-34.0); MEAN CORPUSCULAR VOLUME 94.4 fL (80-100); MONOCYTES 10.7 %; MONOCYTES ABSOLUTE 0.56 10/3/uL (0.21-1.20); NEUTROPHILS 66.1 %; NEUTROPHILS ABSOLUTE 3.46 10/3/uL (2.02-8.40); PLATELET COUNT 283 10/3/uL (150-400); RBC DISTRIBUTION WIDTH 14.1 % (12.0-16.0); RED CELL COUNT 3.59 10/6/uL (4.7-6.1); WHITE BLOOD CELLS 5.2 10/3/uL (4.5-10.5)
[2017-01-02 06:55] LABS: MANUAL DIFF NO %
[2017-01-02 13:04] LABS: CALCIUM, SERUM 8.3 MG/DL (8.5-10.4); PHOSPHORUS, SERUM 3.4 MG/DL (2.5-4.5)
[2017-01-02 13:06] LABS: GLUCOSE, SERUM 70 MG/DL (60-99)
[2017-01-02 13:24] LABS: BUN (BLOOD UREA NITROGEN) 4 MG/DL (6-23); CHLORIDE, SERUM 99 MMOL/L (96-112); CO2 (CARBON DIOXIDE) 41 MMOL/L (24-34); CREATININE < 0.15 MG/DL (0.70-1.30); GFR AFRICAN AMERICAN 275 ML/MIN (>=60); GFR NON AFRICAN AMERICAN 237 ML/MIN (>=60); POTASSIUM, SERUM 3.9 MMOL/L (3.5-5.3); SODIUM, SERUM 144 MMOL/L (135-148)
[2017-01-03 10:25] LABS: BUN (BLOOD UREA NITROGEN) 5 MG/DL (6-23); CALCIUM, SERUM 8.7 MG/DL (8.5-10.4); CHLORIDE, SERUM 97 MMOL/L (96-112); PHOSPHORUS, SERUM 2.6 MG/DL (2.5-4.5); POTASSIUM, SERUM 3.7 MMOL/L (3.5-5.3); SODIUM, SERUM 143 MMOL/L (135-148)
[2017-01-03 10:26] LABS: CO2 (CARBON DIOXIDE) 43 MMOL/L (24-34)
[2017-01-03 10:27] LABS: CREATININE < 0.15 MG/DL (0.70-1.30); GFR AFRICAN AMERICAN 275 ML/MIN (>=60); GFR NON AFRICAN AMERICAN 237 ML/MIN (>=60)
[2017-01-03 10:28] LABS: GLUCOSE, SERUM 99 MG/DL (60-99)
== END 2017-01-04 18:22 | disposition hospice, inpatient (51) | DRG 189 ==
LOC: ER 22:54 → 1SO 12-17 02:49 → CCU 12-18 13:31 → IMCU 12-20 18:10
PROVIDERS: Family Medicine; Internal Medicine Critical Care Medicine; Internal Medicine Pulmonary Disease; Nurse Practitioner Acute Care; Nurse Practitioner Family; Physician Assistant Medical
PROC: 02HV33Z Insertion of Infusion Device into Superior Vena Cava, Percutaneous Approach (ICD-10-PCS; principal; 2016-12-18)
PROC: 4A02X4A Measurement of Cardiac Electrical Activity, Guidance, External Approach (ICD-10-PCS; 2016-12-18)
DX: J96.21 Acute and chronic respiratory failure with hypoxia (principal); J18.9 Pneumonia, unspecified organism; R53.2 Functional quadriplegia; T17.990A Other foreign object in respiratory tract, part unspecified in causing asphyxiation, initial encounter; D70.9 Neutropenia, unspecified; J96.22 Acute and chronic respiratory failure with hypercapnia; Z66 Do not resuscitate; Z51.5 Encounter for palliative care; Q85.00 Neurofibromatosis, unspecified
CPT/HCPCS: 31720; 36569; 36600; 71010; 80048; 80053; 80069; 80202; 82533; 82805; 82962; 83605; 83735; 84100; 84134; 84145; 84443; 84484; 85025; 87040; 87070; 87205; 87449; 87641; 92610-GN; 93005; 93971; 94640; 94660; 94667; 94668; 96365; 96367; 99291; A9270-GY; C1751; G8996-CJ-GN; G8997-CJ-GN; G8998-CJ-GN; J0692; J2150; J2405; J2543; J3370; J3475